=== PATIENT | male | born 1985 | race Caucasian/White ===

== ENCOUNTER 2019-03-01 15:51 | Emergency (ER) | payer MEDICAID ==
[2019-03-01 16:36] VITALS: BP 150/78; PULSE 72
--- NOTE | 2019-03-01 17:23 | EDM.PDOC ---
ED HPI GENERAL MEDICAL PROBLEM - General Chief Complaint: General Stated Complaint: SOB Time Seen by Provider: 03/01/19 16:43 Source of Information: Reports: Patient History Limitations: Reports: No Limitations - History of Present Illness INITIAL COMMENTS - FREE TEXT/NARRATIVE: 33-year-old male was had 6 hours of peripheral paresthesias, tightness in his throat and chest, and perception of shortness of breath. This has happened to him many times in the past, it usually does not get this bad or last this long. He was about to embark on a [address] and thought he should get checked out first. No fevers or chills, he has a mild cough, and continues to have difficult sensation with swallowing. He had an ENT consult just one month ago with a laryngoscopy and nothing was found. He is seeing a neurologist on 14 March, in less than 2 weeks, to renew his MS medications which he was diagnosed with 2 years ago. He arrived anxious, O2 saturations are 100%, and appeared to be hyperventilating. Onset: Gradual Duration: Hour(s): (6 hours) Associated Symptoms: Reports: Other (Difficulty swallowing) - Related Data Allergies Allergy/AdvReac Type Severity Reaction Status Date / Time No Known Allergies Allergy Verified 03/01/19 16:22 Home Meds: Home Meds NK [No Known Home Meds] 03/01/19 [History] Past Medical History Respiratory History: Reports: Bronchitis, Recurrent Neurological History: Reports: MS Social & Family History - Tobacco Use Smoking Status *Q: Never Smoker ED ROS GENERAL - Review of Systems Review Of Systems: See Below Constitutional: Denies: Fever, Chills HEENT: Denies: Throat Pain, Vision Change Respiratory: Reports: Shortness of Breath Cardiovascular: Reports: Other (Pleuritic-like chest discomfort with breathing) Skin: Reports: No Symptoms Neurological: Reports: Dizziness, Paresthesia (Arms and legs, as well as his face). Denies: Headache ED EXAM, GENERAL - Physical Exam Exam: See Below Exam Limited By: No Limitations General Appearance: Alert, Anxious, Mild Distress Eye Exam: Bilateral Eye: Normal Inspection Head: Atraumatic Neck: Supple, Non-Tender Respiratory/Chest: No Respiratory Distress, Lungs Clear Cardiovascular: Regular Rate, Rhythm. No: Tachycardia GI/Abdominal: Soft, Non-Tender Extremities: Normal Inspection Neurological: Alert, Oriented, No Motor/Sensory Deficits Psychiatric: Anxious Skin Exam: Warm, Dry Course - Vital Signs Last Recorded V/S: Last Vital Signs Temp 97.2 F 03/01/19 16:34 Pulse 72 03/01/19 16:34 Resp 14 03/01/19 16:34 BP 150/78 H 03/01/19 16:34 Pulse Ox 100 03/01/19 16:34 - Orders/Labs/Meds Labs: Laboratory Tests 03/01/19 03/01/19 Range/Units 16:48 16:51 Puncture Site Rt.radial ABG pH 7.596 H* (7.350-7.450) ABG pCO2 21.2 L (35.0-42.0) mmHg ABG pO2 107.0 H (75.0-100.0) mmHg ABG HCO3 20.7 L (22.0-26.0) mmol/L ABG Total CO2 17.5 L (23.0-27.0) mmol/L ABG O2 Saturation 98.9 H (95.0-98.0) % ABG O2 Content 19.2 (15.0-23.0) %vol ABG Base Excess 1.1 mm/L ABG Hemoglobin 14.3 (13.5-18.0) g/dL ABG Oxyhemoglobin 95.0 % ABG Carboxyhemoglobin 3.3 H (0.0-1.6) % ABG Methemoglobin 0.6 % Paul Test Passed O2 Delivery Device Room air Urine Opiates Screen Negative (NEGATIVE) Ur Oxycodone Screen Negative (NEGATIVE) Urine Methadone Screen Negative (NEGATIVE) Ur Propoxyphene Screen Negative (NEGATIVE) Ur Barbiturates Screen Negative (NEGATIVE) Ur Tricyclics Screen Negative (NEGATIVE) Ur Phencyclidine Scrn Negative (NEGATIVE) Ur Amphetamine Screen Negative (NEGATIVE) U Methamphetamines Scrn Negative (NEGATIVE) Urine MDMA Screen Negative (NEGATIVE) U Benzodiazepines Scrn Negative (NEGATIVE) U Cocaine Metab Screen Negative (NEGATIVE) U Marijuana (THC) Screen Negative (NEGATIVE) - Re-Assessments/Exams Free Text/Narrative Re-Assessment/Exam: 03/01/19 17:22 UA was obtained, and ABGs on room air. ABGs were significantly abnormal with a pH of 7.596, PCO2 of 21 and PO2 over 100 on room air. He was given nonrebreather bag over the next 20 minutes. Urine drug screen returned negative. 03/01/19 17:41 Patient had markedly less symptoms after rebreathing in the nonrebreather bag for 20 minutes. He was discharged with 10 1 mg doses of Ativan to take one half to one full pill to break anxiety cycles when they occur, he does understand not to take them while driving. What initiates these panic attacks may be some type of smooth muscle dysfunction due to his MS, hopefully when he sees his neurologist and resumes his MS medications those will be gone. Departure - Departure Time of Disposition: 17:58 Disposition: Home, Self-Care 01 Clinical Impression: Acute hyperventilation syndrome, Dysphasia - Discharge Information Instructions: Hyperventilation, Globus Pharyngeus Referrals: PCP,None [Primary Care Provider] - Forms: ED Department Discharge Care Plan Goals: Rebreathe in the bag if you feel you're hyperventilating causing numbness and tingling to the face hands or feet. One half to one pill of Ativan every 6-8 hours to reduce anxiety. Resume your MS medications as soon as possible, and discussed with your doctor preventative medicine for anxiety or hyperventilation.
== END 2019-03-01 17:59 | disposition home or self-care (01) ==
LOC: JP.ED 15:51
DX: F45.8 Other somatoform disorders (principal); R47.02 Dysphasia
CPT/HCPCS: 36600; 80305-QW; 82803; 99284

== ENCOUNTER 2022-11-25 18:39 | Emergency (ER) | payer MEDICAID ==
[2022-11-25 19:03] VITALS: BP 138/74; PULSE 60
[2022-11-25 20:06] LABS: BASOPHILS ABSOLUTE AUTO 0.05 K/uL (0.00-0.10); BASOPHILS PERCENT AUTO 0.6 % (0.1-1.3); EOSINOPHILS ABSOLUTE AUTO 0.12 K/uL (0.00-0.40); EOSINOPHILS PERCENT AUTO 1.6 % (0.0-5.4); HEMATOCRIT 40.2 % (38.4-49.7); HEMOGLOBIN 13.8 g/dL (12.9-16.9); IMMATURE GRAN ABSOLUTE AUTO 0.03 K/uL (0.00-0.23); IMMATURE GRAN PERCENT AUTO 0.4 % (0.0-0.7); LYMPHOCYTES ABSOLUTE AUTO 1.74 K/uL (0.8-3.3); LYMPHOCYTES PERCENT AUTO 22.5 % (11.4-47.7); MEAN CORPUSCULAR HEMOGLOBIN 31.2 pg (31.6-35.5); MEAN CORPUSCULAR HGB CONC 34.3 g/dL (31.6-35.5); MONOCYTES ABSOLUTE AUTO 0.59 K/uL (0.20-0.90); MONOCYTES PERCENT AUTO 7.6 % (3.3-12.6); NEUTROPHILS ABSOLUTE AUTO 5.21 K/uL (1.0-7.6); NEUTROPHILS PERCENT AUTO 67.3 % (40.0-78.1); PLATELET COUNT,PLT 316 K/uL (130-375); RED BLOOD CELL COUNT 4.42 M/uL (4.14-5.76); WHITE BLOOD CELL COUNT,WBC 7.7 K/uL (3.2-11.0)
[2022-11-25 20:31] LABS: CALCIUM 8.8 mg/dL (8.5-10.1); CREATININE 0.8 mg/dL (0.8-1.3); EST CRCL DRUG DOSING (CG) 124.69 mL/min; POTASSIUM,K 3.3 mmol/L (3.6-5.2)
[2022-11-25 20:32] LABS: ANION GAP 10.3 mmol/L (5.0-14.0)
== END 2022-11-25 21:14 | disposition home or self-care (01) ==
LOC: JP.ED 18:39
DX: J45.909 Unspecified asthma, uncomplicated (principal)
CPT/HCPCS: 36415; 71045; 71045-26; 80048; 84145; 84484; 85025; 93005; 93010; 99284; 99285